=== PATIENT | female | born 1950 | race Caucasian/White ===

== ENCOUNTER 2017-05-25 12:44 | Inpatient (IN) ==
[2017-05-25] MEDS: NS 1,000 ML IV SCH (16:12)
[2017-05-25 16:27] LABS: MANUAL DIFF NEEDED? NO
[2017-05-25 16:35] LABS: BASO% 0.3 % (0.0-0.8); EOS# 0.13 X1000 (0.0-0.7); EOS% 1.8 % (0.0-10.0); HEMATOCRIT 37.3 % (37.0-47.0); HEMOGLOBIN 12.5 g/dL (12.0-16.0); LYMPH# 2.21 X1000 (1.2-3.4); LYMPH% 30.2 % (20.5-51.1); MCHC 33.5 g/dL (33-37); MCV 89.4 FL (81-99); MONO% 8.2 % (1.7-9.3); MPV 8.8 FL (7.4-10.4); NEUT% 59.5 % (42.2-75.2); PLT 289 X1000 (130-400); RBC 4.17 XMIL (4.2-5.4)
[2017-05-25 16:41] LABS: INR 0.99; PROTIME 10.4 Seconds (9.2-11.7)
[2017-05-25 16:54] LABS: AGAP 18; ALBUMIN 3.8 g/dL (3.5-5.0); ALKALINE PHOSPHATASE 79 U/L (32-104); BUN 10 mg/dL (8-22); CALCIUM 9.7 mg/dL (8.8-10.2); CHLORIDE 100 mmol/L (98-107); COSMO 286; GOT 13 U/L (10-30); GPT 11 U/L (10-36); MAGNESIUM 1.4 mg/dL (1.5-2.7); POTASSIUM 3.5 mmol/L (3.5-5.1); SODIUM 144 mmol/L (136-145); TCO2 26 mmol/L (25-35); TOTAL BILIRUBIN 0.17 mg/dL (0.20-1.00); TOTAL PROTEIN 7.4 g/dL (6.3-8.3)
[2017-05-25 18:31] LABS: URINE MICRO REVIEW NEEDED? NO; URINE SOURCE CLEAN CATCH
[2017-05-25 18:35] LABS: BILIRUBIN URINE NEGATIVE (NEGATIVE); BLOOD URINE NEGATIVE (NEGATIVE); COLOR STRAW; GLUCOSE URINE NEGATIVE (NEGATIVE); LEUKOCYTES URINE LARGE (NEGATIVE); NITRITE URINE NEGATIVE (NEGATIVE); PROTEIN URINE NEGATIVE (NEGATIVE); SP GRAVITY URINE 1.005; TURBIDITY URINE CLEAR (CLEAR); UROBILINOGEN URINE NORMAL (NORMAL)
[2017-05-25 18:36] LABS: UR EPITHELIAL CELLS <10 /HPF (<10); URINE BACTERIA 3+ /HPF; URINE RBC <10 /HPF (<10)
[2017-05-25 18:37] LABS: URINE CULTURE NEEDED? YES
[2017-05-25] MEDS: HUMALOG SUBQ SCH (22:47)
[2017-05-26] MEDS: NS 1,000 ML IV SCH ×2 (05:23→12:10)
[2017-05-26] MEDS: HUMALOG SUBQ SCH ×4 (06:03→21:38)
[2017-05-26 06:41] LABS: HEMATOCRIT 37.2 % (37.0-47.0); HEMOGLOBIN 12.3 g/dL (12.0-16.0); MCH 29.9 PG (27-31); MCHC 33.1 g/dL (33-37); MCV 90.5 FL (81-99); MPV 8.9 FL (7.4-10.4); RBC 4.11 XMIL (4.2-5.4)
[2017-05-26 07:05] LABS: AGAP 11; BUN 9 mg/dL (8-22); CALCIUM 9.4 mg/dL (8.8-10.2); CHLORIDE 102 mmol/L (98-107); COSMO 288; POTASSIUM 3.8 mmol/L (3.5-5.1); SODIUM 145 mmol/L (136-145); TCO2 32 mmol/L (25-35)
[2017-05-26] MEDS ORDERED: PERICOLACE PO ONE ×2 (12:00→18:00)
[2017-05-26] MEDS ORDERED: TYLENOL PO PRN (12:38)
[2017-05-26] MEDS: LEVAQUIN 500 MG in NS 100 ML IV SCH (15:42)
[2017-05-26] MEDS: BENTYL PO SCH (21:35)
[2017-05-26] MEDS: PROTONIX IV SCH (21:35)
[2017-05-26] MEDS: SODIUM CHLORIDE 0.9% INJ SCH (21:35)
[2017-05-26] MEDS: CARAFATE PO SCH (21:36)
[2017-05-27] MEDS: NS 1,000 ML IV SCH (04:33)
[2017-05-27] MEDS: HUMALOG SUBQ SCH ×4 (06:44→22:24)
[2017-05-27 07:00] LABS: HEMATOCRIT 36.6 % (37.0-47.0); MCH 30.5 PG (27-31); MCHC 32.8 g/dL (33-37); MCV 92.9 FL (81-99); MPV 8.8 FL (7.4-10.4); RBC 3.94 XMIL (4.2-5.4)
[2017-05-27 07:22] LABS: AGAP 14; BUN 5 mg/dL (8-22); CALCIUM 8.7 mg/dL (8.8-10.2); CHLORIDE 104 mmol/L (98-107); COSMO 285; POTASSIUM 3.6 mmol/L (3.5-5.1); SODIUM 144 mmol/L (136-145); TCO2 26 mmol/L (25-35)
[2017-05-27] MEDS ORDERED: MAGNESIUM SULFATE 2 GM/S.W.I. 2 GM/50 ML IVPB IV ONE (09:00)
[2017-05-27] MEDS: BENTYL PO SCH ×4 (11:07→22:23)
[2017-05-27] MEDS: CARAFATE PO SCH ×4 (11:08→22:22)
[2017-05-27] MEDS: LEVAQUIN 500 MG in NS 100 ML IV SCH (14:43)
[2017-05-27] MEDS ORDERED: GOLYTELY PO ONE (18:00)
[2017-05-27] MEDS ORDERED: DULCOLAX PO ONE (18:17)
[2017-05-27] MEDS ORDERED: MIRALAX PO ONE (18:30)
[2017-05-27] MEDS: SODIUM CHLORIDE 0.9% INJ SCH (22:21)
[2017-05-27] MEDS: PROTONIX IV SCH (22:21)
[2017-05-27] MEDS: COREG PO SCH (22:21)
[2017-05-28] MEDS ORDERED: ZOFRAN IV ONE (01:03)
[2017-05-28] MEDS ORDERED: ZOFRAN IV PRN (01:03)
[2017-05-28] MEDS ORDERED: DULCOLAX PO ONE (06:00)
[2017-05-28] MEDS: HUMALOG SUBQ SCH ×3 (06:03→16:22)
[2017-05-28 07:13] LABS: HEMATOCRIT 38.1 % (37.0-47.0); HEMOGLOBIN 12.4 g/dL (12.0-16.0); MCH 30.5 PG (27-31); MCHC 32.5 g/dL (33-37); MCV 93.6 FL (81-99); MPV 8.7 FL (7.4-10.4); RBC 4.07 XMIL (4.2-5.4)
[2017-05-28 07:27] LABS: AGAP 15; BUN 4 mg/dL (8-22); CALCIUM 9.4 mg/dL (8.8-10.2); CHLORIDE 103 mmol/L (98-107); COSMO 286; POTASSIUM 3.7 mmol/L (3.5-5.1); SODIUM 145 mmol/L (136-145); TCO2 27 mmol/L (25-35)
[2017-05-28] MEDS: BENTYL PO SCH ×3 (11:58→16:23)
[2017-05-28] MEDS: COREG PO SCH (11:58)
[2017-05-28] MEDS: CARAFATE PO SCH ×3 (11:58→16:23)
[2017-05-28] MEDS ORDERED: DIPRIVAN 1% ONE (16:26)
[2017-05-28] MEDS: SOLU-MEDROL IV SCH (18:28)
[2017-05-28] MEDS: HUMULIN R SUBQ SCH (21:35)
[2017-05-29] MEDS: HUMULIN R SUBQ SCH ×4 (06:18→21:53)
[2017-05-29] MEDS ORDERED: LEVAQUIN PO SCH (09:00)
[2017-05-29] MEDS ORDERED: CATAPRES PO ONE (09:25)
[2017-05-29] MEDS: FLAGYL 500 MG/NS 500 MG/100 ML IVPB IV SCH ×3 (11:23→22:50)
[2017-05-29 12:16] LABS: HEMATOCRIT 35.7 % (37.0-47.0); HEMOGLOBIN 11.6 g/dL (12.0-16.0); MCH 30.2 PG (27-31); MCHC 32.5 g/dL (33-37); RBC 3.84 XMIL (4.2-5.4)
[2017-05-29] MEDS ORDERED: CIPRO 400 MG/D5W 400 MG/200 ML IVPB IV SCH (13:00)
[2017-05-29] MEDS: AZACTAM 1 GM in NS 50 ML IV SCH ×2 (15:15→22:02)
[2017-05-29] MEDS: SOLU-MEDROL IV SCH (17:19)
[2017-05-29] MEDS ORDERED: ZOFRAN IV PRN (23:14)
[2017-05-30] MEDS: FLAGYL 500 MG/NS 500 MG/100 ML IVPB IV SCH (06:34)
[2017-05-30] MEDS: HUMULIN R SUBQ SCH ×4 (06:39→22:51)
[2017-05-30 07:12] LABS: HEMATOCRIT 38.9 % (37.0-47.0); HEMOGLOBIN 12.8 g/dL (12.0-16.0); MCH 30.5 PG (27-31); MCHC 32.9 g/dL (33-37); MCV 92.6 FL (81-99); MPV 8.9 FL (7.4-10.4); RBC 4.2 XMIL (4.2-5.4)
[2017-05-30 07:15] LABS: AGAP 11; BUN 14 mg/dL (8-22); CHLORIDE 102 mmol/L (98-107); COSMO 284; SODIUM 141 mmol/L (136-145); TCO2 28 mmol/L (25-35)
[2017-05-30] MEDS: CATAPRES PO PRN (09:36)
[2017-05-30] MEDS ORDERED: ZOFRAN ODT PO PRN (16:00)
[2017-05-30] MEDS ORDERED: NON-FORMULARY MED (Dulaglutide [Trulicity] 0 MG) SUBQ SCH (16:15)
[2017-05-30] MEDS ORDERED: ASACOL HD PO SCH (17:00)
[2017-05-30] MEDS: LEXAPRO PO SCH (17:00)
[2017-05-30] MEDS: PROTONIX PO SCH (17:00)
[2017-05-30] MEDS: CARAFATE PO SCH ×2 (17:00→22:51)
[2017-05-30] MEDS: PREDNISONE PO SCH (18:09)
[2017-05-30] MEDS: BENTYL PO SCH (22:51)
[2017-05-30] MEDS: CIPRO PO SCH (22:51)
[2017-05-30] MEDS: ROWASA ENEMA PR SCH (22:51)
[2017-05-30] MEDS: TYLENOL PO PRN (22:51)
[2017-05-31] MEDS: CARAFATE PO SCH ×4 (06:47→23:02)
[2017-05-31] MEDS: HUMULIN R SUBQ SCH ×4 (06:47→23:03)
[2017-05-31] MEDS: BENTYL PO SCH ×4 (06:47→23:02)
[2017-05-31 07:33] LABS: HEMATOCRIT 38.4 % (37.0-47.0); HEMOGLOBIN 12.7 g/dL (12.0-16.0); MCH 30.6 PG (27-31); MCHC 33.1 g/dL (33-37); MCV 92.5 FL (81-99); MPV 8.9 FL (7.4-10.4); RBC 4.15 XMIL (4.2-5.4)
[2017-05-31 07:46] LABS: AGAP 10; BUN 15 mg/dL (8-22); CALCIUM 9.6 mg/dL (8.8-10.2); CHLORIDE 103 mmol/L (98-107); COSMO 284; MAGNESIUM 1.9 mg/dL (1.5-2.7); POTASSIUM 4.6 mmol/L (3.5-5.1); SODIUM 141 mmol/L (136-145); TCO2 28 mmol/L (25-35)
[2017-05-31] MEDS: CATAPRES PO PRN ×2 (08:28→12:29)
[2017-05-31] MEDS: CIPRO PO SCH (08:29)
[2017-05-31] MEDS: LEXAPRO PO SCH (08:29)
[2017-05-31] MEDS: PENTASA PO SCH ×4 (08:29→23:02)
[2017-05-31] MEDS: PREDNISONE PO SCH (08:29)
[2017-05-31] MEDS: CLARITIN PO SCH (08:29)
[2017-05-31] MEDS: NORVASC PO SCH (15:34)
[2017-05-31] MEDS: PROTONIX PO SCH (15:35)
[2017-05-31] MEDS: GLUCOPHAGE PO SCH (16:54)
[2017-05-31] MEDS: ROWASA ENEMA PR SCH (23:03)
[2017-06-01] MEDS: TYLENOL PO PRN (01:45)
[2017-06-01] MEDS: CARAFATE PO SCH ×2 (05:57→09:42)
[2017-06-01] MEDS: BENTYL PO SCH ×2 (06:01→11:22)
[2017-06-01] MEDS: HUMULIN R SUBQ SCH ×2 (06:01→11:22)
[2017-06-01 06:45] LABS: HEMOGLOBIN 12.3 g/dL (12.0-16.0); MCH 30.3 PG (27-31); MCHC 32.4 g/dL (33-37); MCV 93.6 FL (81-99); MPV 9.1 FL (7.4-10.4); RBC 4.06 XMIL (4.2-5.4)
[2017-06-01 06:52] LABS: AGAP 10; BUN 15 mg/dL (8-22); CALCIUM 9.2 mg/dL (8.8-10.2); CHLORIDE 103 mmol/L (98-107); COSMO 286; POTASSIUM 4.1 mmol/L (3.5-5.1); SODIUM 142 mmol/L (136-145); TCO2 29 mmol/L (25-35)
[2017-06-01] MEDS: NORVASC PO SCH (09:42)
[2017-06-01] MEDS: PREDNISONE PO SCH (09:42)
[2017-06-01] MEDS: LEXAPRO PO SCH (09:42)
[2017-06-01] MEDS: CLARITIN PO SCH (09:42)
[2017-06-01] MEDS: GLUCOPHAGE PO SCH (09:42)
[2017-06-01] MEDS: PENTASA PO SCH ×2 (09:42→14:03)
[2017-06-01 12:43] VITALS: BP 135/64
== END 2017-06-01 16:41 | disposition home or self-care (01) ==
LOC: DIRADM 12:44 → SUATTDRO 12:44 → 3N 13:34
PROVIDERS: ATTEND Internal Medicine